=== PATIENT | male | born 1965 | race Caucasian/White ===

== ENCOUNTER 2023-07-16 13:02 | Emergency (ER) | payer MEDICAID ==
[~2023-07-16] VITALS: Ht 165.1 cm; Wt 80.0 kg
[2023-07-16 13:26] VITALS: BP 111/78; PULSE 85; RESP 16; TEMP 98; O2SAT 98
[2023-07-16] MEDS ORDERED: LIDOCAINE 5% PATCH TOP SCH (14:00)
[2023-07-16] MEDS ORDERED: KETOROLAC 30MG/ML VIAL IM ONE (14:00)
[2023-07-16] MEDS ORDERED: LIDO700A15 TP (15:37)
[2023-07-16] MEDS ORDERED: CYCL10TA21 MT (15:37)
[2023-07-16] MEDS ORDERED: NAPR-1176 MT (15:37)
== END 2023-07-16 17:43 | disposition home or self-care (01) ==
LOC: ER 13:02
DX: M54.50 Low back pain, unspecified (principal)
CPT/HCPCS: 99281

== ENCOUNTER 2023-07-19 09:07 | Emergency (ER) | payer MEDICAID ==
[~2023-07-19] VITALS: Ht 175.3 cm; Wt 81.0 kg
[~2023-07-19 09:07] MED LIST: CYCL10TA21 MT; LIDO700A15 TP; NAPR-1176 MT
[2023-07-19 09:13] VITALS: O2SAT 97
[2023-07-19] MEDS ORDERED: KETOROLAC 30MG/ML VIAL IM STA (10:43)
[2023-07-19] MEDS ORDERED: AMOX-494 MT ×3 (13:36→15:17)
[2023-07-19] MEDS ORDERED: NAPR-681 PO ×3 (13:36→15:17)
[2023-07-19 14:13] VITALS: BP 124/86; PULSE 89; RESP 18; TEMP 98.7
== END 2023-07-19 14:14 | disposition home or self-care (01) ==
LOC: ER 09:07
DX: J02.9 Acute pharyngitis, unspecified (principal); Z20.822 Contact with and (suspected) exposure to COVID-19
CPT/HCPCS: 87430; 87070; 96372; 99283; 87426; J1885; C9803; Z7610

== ENCOUNTER 2024-01-22 00:33 | Emergency (ER) | payer OTHER, MEDICAID ==
[~2024-01-22] VITALS: Ht 165.1 cm; Wt 82.0 kg
[~2024-01-22 00:33] MED LIST changes: +AMOX-494 MT; +NAPR-681 PO
[2024-01-22 01:15] VITALS: O2SAT 97
[2024-01-22] MEDS ORDERED: IBUP-1523 MT (04:25)
[2024-01-22] MEDS ORDERED: TOPUD MT (04:25)
[2024-01-22] MEDS ORDERED: DIPH1TAB24 MT (04:25)
[2024-01-22] MEDS ORDERED: CIPR-263 MT (04:26)
[2024-01-22 04:45] VITALS: BP 137/81; PULSE 86; RESP 16; TEMP 98.5
== END 2024-01-22 04:47 | disposition home or self-care (01) ==
LOC: ER 00:33
DX: R19.7 Diarrhea, unspecified (principal); R11.2 Nausea with vomiting, unspecified; Z79.899 Other long term (current) drug therapy
CPT/HCPCS: 99283; Z7610 ×2